=== PATIENT | female | born 1990 | race Caucasian/White ===

== ENCOUNTER 2018-06-10 01:08 | Emergency (ER) | payer MEDICARE, MEDICAID ==
--- NOTE | 2018-06-10 02:15 | ED PDOC ---
Lower Extremity Pain/Injury Time Seen by Provider: 06/10/18 01:30 Chief Complaint (Nursing): Abnormal Skin Integrity History Per: Patient History/Exam Limitations: no limitations Additional Complaint(s): Hx of bipolar d/o, schizophrenia presenting with puncture wound to R foot, states she might have stepped on a rock but unsure. States it pat through her sandle. STates she felt dizzy after the incident which has since resolved. Tetanus up to date. Past Medical History Reviewed: Historical Data, Nursing Documentation, Vital Signs Vital Signs: Last Vital Signs Temp 98.8 F 06/10/18 01:24 Pulse 81 06/10/18 01:24 Resp 16 06/10/18 01:24 BP 131/92 H 06/10/18 01:24 Pulse Ox 97 06/10/18 01:24 - Medical History PMH: Anemia, Anxiety, Arthritis, Asthma, Bipolar Disorder, Depression, Hypothyroidism, Schizophrenia, Seizures - Family History Family History: States: Unknown Family Hx - Immunization History Hx Tetanus Toxoid Vaccination: Yes Hx Influenza Vaccination: Yes Hx Pneumococcal Vaccination: No - Home Medications Home Medications: Ambulatory Orders Medication Instructions Recorded Naproxen [Naprosyn] 500 mg PO BID PRN #16 tab 05/29/18 Phenazopyridine HCl [Pyridium] 200 mg PO TID PRN #6 tablet 05/29/18 Sulfamethoxazole/Trimethoprim 1 tab PO BID #14 tab 05/29/18 [Bactrim DS 800 mg-160 mg] Levofloxacin [Levaquin] 750 mg PO DAILY #5 tablet 06/10/18 - Allergies Allergies/Adverse Reactions: Allergies Allergy/AdvReac Type Severity Reaction Status Date / Time No Known Allergies Allergy Verified 05/29/18 08:03 Review of Systems ROS Statement: Except As Marked, All Systems Reviewed And Found Negative Physical Exam - Reviewed Nursing Documentation Reviewed: Yes Vital Signs Reviewed: Yes - Physical Exam Appears: Positive for: Well, Non-toxic, No Acute Distress Extremity: Positive for: Other (puncture wound to R bottom of foot, <.5cm, no bleeding) - ECG O2 Sat by Pulse Oximetry: 97 Medical Decision Making Medical Decision Making: Small puncture wound, cleaned and dressed with betadine and bacitracin. Advised patient to watch wound for 48 hours, if any signs of cellulits to develop, advised to start taking ABx. Advised to followup with podiatry. Disposition - Clinical Impression Clinical Impression: Puncture wound - Disposition Referrals: Akbar Cabrera MD [Primary Care Provider] - Podiatry Clinic [Outside] Disposition: Routine/Home Disposition Time: 02:19 Condition: GOOD Additional Instructions: Watch the wound for 2 days. If there's redness around the puncture area, start taking the antibiotics. Apply bacitracin/neosporin daily. Prescriptions: Levofloxacin [Levaquin] 750 mg PO DAILY #5 tablet Instructions: Wound Care
[2018-06-10 03:34] VITALS: BP 121/76; PULSE 85; RESP 18; TEMP 97.8; O2SAT 98
== END 2018-06-10 02:53 | disposition home or self-care (01) ==
LOC: H.ER 01:08
DX: S91.331A Puncture wound without foreign body, right foot, initial encounter (principal); W26.8XXA Contact with other sharp object(s), not elsewhere classified, initial encounter; Y92.89 Other specified places as the place of occurrence of the external cause; F31.9 Bipolar disorder, unspecified; F20.9 Schizophrenia, unspecified; E03.9 Hypothyroidism, unspecified